=== PATIENT | male | born 1940 | race Caucasian/White ===

== ENCOUNTER 2018-02-15 12:59 | Outpatient (CLI) | payer OTHER | END 2018-02-15 13:06 | disposition home or self-care (01) | LOC: NUCLEAR 12:59 | DX: M81.0 Age-related osteoporosis without current pathological fracture (principal) ==

== ENCOUNTER 2018-03-29 08:11 | Outpatient (CLI) | payer OTHER | END 2018-03-29 17:00 | disposition home or self-care (01) | LOC: RAD 08:11 | DX: M19.049 Primary osteoarthritis, unspecified hand (principal) ==

== ENCOUNTER → 2018-04-14 | Outpatient (CLI) | payer OTHER | END | disposition home or self-care (01) | LOC: NUCLEAR 10:57 | DX: G45.8 Other transient cerebral ischemic attacks and related syndromes (principal); Z86.73 Personal history of transient ischemic attack (TIA), and cerebral infarction without residual deficits ==

== ENCOUNTER 2019-04-12 11:51 | Outpatient (CLI) | payer OTHER | END 2019-04-12 12:54 | disposition home or self-care (01) | LOC: MRI 11:51 | DX: M54.5 Low back pain (principal); M54.6 Pain in thoracic spine | CPT/HCPCS: 72148 ==

== ENCOUNTER → 2019-11-17 11:41 | Outpatient (CLI) | payer OTHER | END | disposition home or self-care (01) | LOC: LAB 11:41 | DX: E11.65 Type 2 diabetes mellitus with hyperglycemia (principal); E78.2 Mixed hyperlipidemia; E03.8 Other specified hypothyroidism; E11.21 Type 2 diabetes mellitus with diabetic nephropathy; Z12.11 Encounter for screening for malignant neoplasm of colon ==

== ENCOUNTER 2020-03-13 04:43 | Day surgery (SDC) | payer OTHER ==
[~2020-03-13 04:43] MED LIST: CARDURA XL4 MG PO; FOSAMAX70 MG PO; HORIZANT300 MG; HORIZANT300 MG PO; SIMVASTATIN5 MG PO; SINGULAIR10 MG PO; THYROID PO; ZETIA10 MG PO
== END 2020-03-13 15:36 | disposition home or self-care (01) ==
LOC: CIR.AMB 04:43 → ADM 09:30 → CIR.AMB 15:36
PROVIDERS: ATTEND Specialist
DX: K40.90 Unilateral inguinal hernia, without obstruction or gangrene, not specified as recurrent (principal)

== ENCOUNTER → 2020-12-08 | Outpatient (CLI) | payer OTHER | END | disposition home or self-care (01) | LOC: RAD 12:35 | PROVIDERS: ATTEND Physical Medicine & Rehabilitation | DX: M54.2 Cervicalgia (principal) ==

== ENCOUNTER 2021-05-27 14:39 | Outpatient (CLI) | payer OTHER | END 2021-05-27 14:49 | disposition home or self-care (01) | LOC: RAD 14:39 | PROVIDERS: ATTEND Physical Medicine & Rehabilitation | DX: M19.041 Primary osteoarthritis, right hand (principal); M19.042 Primary osteoarthritis, left hand ==

== ENCOUNTER 2021-06-09 08:00 | Outpatient (CLI) | payer OTHER | END 2021-06-09 08:30 | disposition home or self-care (01) | LOC: PPH VACUNA 08:00 | PROVIDERS: ATTEND Emergency Medicine Pediatric Emergency Medicine | DX: Z23 Encounter for immunization (principal) ==

== ENCOUNTER 2021-07-06 12:06 | Outpatient (CLI) | payer OTHER | END 2021-07-06 12:32 | disposition home or self-care (01) | LOC: RAD 12:06 | PROVIDERS: ATTEND Physical Medicine & Rehabilitation Pain Medicine | DX: M53.88 Other specified dorsopathies, sacral and sacrococcygeal region (principal); M54.59 Other low back pain ==

== ENCOUNTER 2021-09-01 10:27 | Outpatient (CLI) | payer OTHER | END 2021-09-01 10:40 | disposition home or self-care (01) | LOC: MRI 10:27 | PROVIDERS: ATTEND Physical Medicine & Rehabilitation Pain Medicine | DX: M48.07 Spinal stenosis, lumbosacral region (principal); M54.17 Radiculopathy, lumbosacral region | CPT/HCPCS: 72148 ==

== ENCOUNTER 2021-09-16 08:11 | Outpatient (CLI) | payer OTHER | END 2021-09-16 14:42 | disposition home or self-care (01) | LOC: LAB 08:11 | PROVIDERS: ATTEND Internal Medicine Hematology & Oncology | DX: E78.2 Mixed hyperlipidemia (principal); E03.8 Other specified hypothyroidism; D64.89 Other specified anemias; D68.61 Antiphospholipid syndrome; D51.0 Vitamin B12 deficiency anemia due to intrinsic factor deficiency; D51.1 Vitamin B12 deficiency anemia due to selective vitamin B12 malabsorption with proteinuria; E72.12 Methylenetetrahydrofolate reductase deficiency; E06.3 Autoimmune thyroiditis; H34.8110 Central retinal vein occlusion, right eye, with macular edema; I10 Essential (primary) hypertension; N40.1 Benign prostatic hyperplasia with lower urinary tract symptoms; J45.998 Other asthma; I73.9 Peripheral vascular disease, unspecified ==

== ENCOUNTER 2022-03-25 08:24 | Outpatient (CLI) | payer OTHER | END 2022-03-25 08:42 | disposition home or self-care (01) | LOC: LAB 08:24 | PROVIDERS: ATTEND Internal Medicine Hematology & Oncology | DX: E03.9 Hypothyroidism, unspecified (principal); E78.2 Mixed hyperlipidemia; D50.8 Other iron deficiency anemias; I10 Essential (primary) hypertension; R74.02 Elevation of levels of lactic acid dehydrogenase [LDH]; K76.89 Other specified diseases of liver; D51.8 Other vitamin B12 deficiency anemias; E55.9 Vitamin D deficiency, unspecified; E03.8 Other specified hypothyroidism; D68.59 Other primary thrombophilia; R97.0 Elevated carcinoembryonic antigen [CEA]; R97.8 Other abnormal tumor markers; R97.20 Elevated prostate specific antigen [PSA]; E72.12 Methylenetetrahydrofolate reductase deficiency; E72.11 Homocystinuria; E06.3 Autoimmune thyroiditis; H34.8110 Central retinal vein occlusion, right eye, with macular edema; N40.1 Benign prostatic hyperplasia with lower urinary tract symptoms; J45.998 Other asthma; I70.213 Atherosclerosis of native arteries of extremities with intermittent claudication, bilateral legs ==

== ENCOUNTER 2022-03-29 10:20 | Outpatient (CLI) | payer OTHER | END 2022-03-29 10:22 | disposition home or self-care (01) | LOC: NUCLEAR 10:20 | PROVIDERS: ATTEND Specialist | DX: M81.0 Age-related osteoporosis without current pathological fracture (principal); Z88.0 Allergy status to penicillin ==

== ENCOUNTER → 2022-06-04 07:14 | Outpatient (CLI) | payer OTHER | END | disposition home or self-care (01) | LOC: NUCLEAR 07:14 | PROVIDERS: ATTEND Internal Medicine Cardiovascular Disease | DX: I20.9 Angina pectoris, unspecified (principal); Z88.0 Allergy status to penicillin | CPT/HCPCS: 78452; 93017; A9500; J0153 ==

== ENCOUNTER 2022-06-11 08:50 | Outpatient (CLI) | payer OTHER | END 2022-06-11 15:54 | disposition home or self-care (01) | LOC: SONOGRAMA 08:50 | PROVIDERS: ATTEND Internal Medicine Cardiovascular Disease | DX: R97.20 Elevated prostate specific antigen [PSA] (principal) ==

== ENCOUNTER 2022-06-14 08:47 | Outpatient (CLI) | payer OTHER | END 2022-06-14 16:20 | disposition home or self-care (01) | LOC: TOM 08:47 | PROVIDERS: ATTEND Radiology Diagnostic Radiology | DX: I82.429 Acute embolism and thrombosis of unspecified iliac vein (principal) ==

== ENCOUNTER 2023-09-02 11:43 | Outpatient (CLI) | payer OTHER | END 2023-09-02 11:44 | disposition home or self-care (01) | LOC: NUCLEAR 11:43 | PROVIDERS: ATTEND Internal Medicine Cardiovascular Disease | DX: I50.9 Heart failure, unspecified (principal) | CPT/HCPCS: 78472; A9560 ==

== ENCOUNTER 2023-09-21 07:31 | Outpatient (CLI) | payer OTHER ==
[2023-09-21 08:39] LABS: HEMATOCRIT 39.9 % (39.0-48.0); HEMOGLOBIN 13.7 g/dL (13-16.00); MEAN CELL VOLUME 90.1 fL (80.0-100.00); MEAN CORPUSCULAR HEMOGLOBIN 30.9 pg (27.00-32.0); MEAN CORPUSCULAR HGB CONC 34.3 g/dl (32.0-36.0); PLATELET COUNT 263 K/uL (150-450); RED BLOOD COUNT 4.42 M/uL (4.00-6.00); RED CELL DISTRIBUTION WIDTH 14.8 % (11.5-14.5)
[2023-09-21 08:47] LABS: PH,URINE 5.5 (5.0-8.0); URINE APPEARANCE Clear; URINE BILIRRUBIN Negative (NEGATIVE); URINE BLOOD Negative; URINE COLOR Yellow; URINE GLUCOSE Negative (NEGATIVE); URINE LEUKOCYTE Negative; URINE NITRATE Negative; URINE PROTEIN Negative (NEGATIVE); URINE UROBILINOGEN 0.2 E.U./dl
[2023-09-21 08:59] LABS: URINE BACTERIA 1.2 uL (0.0-1933); URINE EPITHELIAL CELLS 0.7 uL (0.0-38.8); URINE RBC 0.8 uL (0.0-20.8); URINE WBC 0.1 uL (0.0-23.2)
[2023-09-21 09:32] LABS: ALBUMIN 3.7 gm/dL (3.4-5.0); ALKALINE PHOSPHATASE 64 U/L (50-136); ALT/SGPT 38 U/L (12-78); ANION GAP 8 (10.0-20.0); AST/SGOT 16 U/L (15-37); BILIRUBIN TOTAL 0.59 mg/dL (0.3-1.2); BLOOD UREA NITROGEN 19 mg/dL (7-18); BUN CREA RATIO 17 (7.0-25.0); CALCIUM 9.7 mg/dL (8.5-10.1); CARBON DIOXIDE 27 mEq/L (21-32); CHLORIDE 107 mmol/L (98-107); CHOL HDL RATIO 2.6 (0-5.0); CHOLESTEROL 187 mg/dL (0-200); CREATININE SERUM 1.12 mg/dL (0.70-1.30); FREE TRIODOTIRONINE 2.22 pg/ml (2.18-3.98); GFR 62.92; GLOBULINA 3.2 G/DL (2.4-3.5); GLUCOSE FASTING 120 mg/dL (65-100); HDL 71 mg/dl (40-60); LDH 115 U/L (87-241); LDL 104 mg/dl (0-130); OSMOLALITY SERUM 279 MOSM/KG (275-295); POTASSIUM 4.02 mEq/L (3.5-5.1); SODIUM 138 mmol/L (136-145); TOTAL PROTEIN 6.9 gm/dL (6.4-8.2); TRIGLYCERIDES 62 mg/dL (0-150); VLDL 12 (0-39)
[2023-09-21 09:40] LABS: C-REACTIVE PROTEIN < 0.29 MG/DL (0.00-0.29)
[2023-09-21 10:53] LABS: FOLIC ACID > 20.00 ng/ml (4.78-20); VITAMIN D3 25 HYDROXY 45.85 ng/ml (30-120)
[2023-09-21 11:35] LABS: PLATELET ESTIMATE NORMAL (NORMAL)
[2023-09-21 11:52] LABS: MANUAL PLATELET COUNT 334
== END 2023-09-21 07:32 | disposition home or self-care (01) ==
LOC: LAB 07:31
PROVIDERS: ATTEND Internal Medicine Hematology & Oncology
DX: D51.0 Vitamin B12 deficiency anemia due to intrinsic factor deficiency (principal); D51.1 Vitamin B12 deficiency anemia due to selective vitamin B12 malabsorption with proteinuria; E72.12 Methylenetetrahydrofolate reductase deficiency; E72.11 Homocystinuria; E06.3 Autoimmune thyroiditis; H34.8110 Central retinal vein occlusion, right eye, with macular edema; I10 Essential (primary) hypertension; N40.1 Benign prostatic hyperplasia with lower urinary tract symptoms; E03.8 Other specified hypothyroidism; E78.2 Mixed hyperlipidemia; I70.213 Atherosclerosis of native arteries of extremities with intermittent claudication, bilateral legs; E55.9 Vitamin D deficiency, unspecified; Z13.220 Encounter for screening for lipoid disorders; E11.69 Type 2 diabetes mellitus with other specified complication; E11.21 Type 2 diabetes mellitus with diabetic nephropathy; N39.9 Disorder of urinary system, unspecified; M00.08 Staphylococcal arthritis, vertebrae; D64.89 Other specified anemias; R19.5 Other fecal abnormalities; Z88.0 Allergy status to penicillin

== ENCOUNTER → 2023-09-22 11:38 | Outpatient (CLI) | payer OTHER ==
[2023-09-22 12:44] LABS: ob POSITIVE (NEGATIVE)
== END | disposition home or self-care (01) ==
LOC: LAB 11:38
PROVIDERS: ATTEND Specialist
DX: Z13.220 Encounter for screening for lipoid disorders (principal); E11.69 Type 2 diabetes mellitus with other specified complication; E11.21 Type 2 diabetes mellitus with diabetic nephropathy; E03.8 Other specified hypothyroidism; N39.9 Disorder of urinary system, unspecified; M00.08 Staphylococcal arthritis, vertebrae; D64.89 Other specified anemias; R19.5 Other fecal abnormalities; Z88.0 Allergy status to penicillin

== ENCOUNTER 2023-10-07 07:06 | Outpatient (CLI) | payer OTHER | END 2023-10-07 07:08 | disposition home or self-care (01) | LOC: NUCLEAR 07:06 | PROVIDERS: ATTEND Internal Medicine | DX: I25.10 Atherosclerotic heart disease of native coronary artery without angina pectoris (principal) | CPT/HCPCS: 78452; 93017; A9500 ==

== ENCOUNTER 2023-11-16 07:18 | Outpatient (CLI) | payer OTHER | END 2023-11-25 15:32 | disposition home or self-care (01) | LOC: RAD 07:18 | PROVIDERS: ATTEND Otolaryngology | DX: R10.13 Epigastric pain (principal) ==

== ENCOUNTER → 2024-05-23 | Outpatient (CLI) | payer OTHER | END | disposition home or self-care (01) | LOC: RAD 11:06 | PROVIDERS: ATTEND Physical Medicine & Rehabilitation | DX: M25.551 Pain in right hip (principal) ==

== ENCOUNTER → 2024-06-13 07:00 | Outpatient (CLI) | payer OTHER ==
[2024-06-13 08:33] LABS: HEMATOCRIT 33.8 % (39.0-48.0); HEMOGLOBIN 11.7 g/dL (13-16.00); MEAN CELL VOLUME 89.9 fL (80.0-100.00); MEAN CORPUSCULAR HEMOGLOBIN 31.2 pg (27.00-32.0); MEAN CORPUSCULAR HGB CONC 34.7 g/dl (32.0-36.0); PLATELET COUNT 376 K/uL (150-450); RED BLOOD COUNT 3.76 M/uL (4.00-6.00); RED CELL DISTRIBUTION WIDTH 17.3 % (11.5-14.5)
[2024-06-13 09:41] LABS: ALBUMIN 3.2 gm/dL (3.4-5.0); BILIRUBIN TOTAL 3.68 mg/dL (0.3-1.2); BILIRUBIN,CONJUGATED 2.81 mg/dL (0.0-0.2); BILIRUBIN,UNCONJUGATED 0.87 mg/dL (0.0-0.6); TOTAL PROTEIN 6.8 gm/dL (6.4-8.2)
[2024-06-14 07:11] LABS: hav igm Negative (Negative); hcv Non Reactive (Non Reactive); hep b c Negative (Negative); hep b s ag Negative (Negative)
[2024-06-14 09:07] LABS: HAPTOGLOBIN 145 mg/dL (38-329)
== END | disposition home or self-care (01) ==
LOC: LAB 07:00
PROVIDERS: ATTEND Specialist
DX: D64.9 Anemia, unspecified (principal); K75.81 Nonalcoholic steatohepatitis (NASH); B19.10 Unspecified viral hepatitis B without hepatic coma; D58.9 Hereditary hemolytic anemia, unspecified; B15.9 Hepatitis A without hepatic coma

== ENCOUNTER 2024-12-20 07:48 | Outpatient (CLI) | payer OTHER | END 2024-12-20 08:00 | disposition home or self-care (01) | LOC: SONOGRAMA 07:48 | PROVIDERS: ATTEND Specialist | DX: N20.0 Calculus of kidney (principal) ==

== ENCOUNTER 2025-01-04 09:14 | Outpatient (CLI) | payer OTHER | END 2025-01-04 09:30 | disposition home or self-care (01) | LOC: RAD 09:14 | PROVIDERS: ATTEND Internal Medicine Hematology & Oncology | DX: D68.61 Antiphospholipid syndrome (principal); D51.0 Vitamin B12 deficiency anemia due to intrinsic factor deficiency; D51.1 Vitamin B12 deficiency anemia due to selective vitamin B12 malabsorption with proteinuria; E72.12 Methylenetetrahydrofolate reductase deficiency; E06.3 Autoimmune thyroiditis; H34.8110 Central retinal vein occlusion, right eye, with macular edema; I10 Essential (primary) hypertension; N40.1 Benign prostatic hyperplasia with lower urinary tract symptoms; E03.8 Other specified hypothyroidism; J45.998 Other asthma; E78.2 Mixed hyperlipidemia; I73.9 Peripheral vascular disease, unspecified; E55.9 Vitamin D deficiency, unspecified; K71.6 Toxic liver disease with hepatitis, not elsewhere classified ==

== ENCOUNTER 2025-01-04 10:57 | Outpatient (CLI) | payer OTHER ==
[2025-01-04 13:18] LABS: URIC ACID 5.5 mg/dL (3.5-8.5)
[2025-01-04 13:26] LABS: C-REACTIVE PROTEIN < 0.29 MG/DL (0.00-0.29)
== END 2025-01-04 11:03 | disposition home or self-care (01) ==
LOC: LAB 10:57
PROVIDERS: ATTEND Internal Medicine Hematology & Oncology
DX: E79.0 Hyperuricemia without signs of inflammatory arthritis and tophaceous disease (principal); D68.61 Antiphospholipid syndrome; D51.0 Vitamin B12 deficiency anemia due to intrinsic factor deficiency; D51.1 Vitamin B12 deficiency anemia due to selective vitamin B12 malabsorption with proteinuria; E72.12 Methylenetetrahydrofolate reductase deficiency; E72.11 Homocystinuria; E06.3 Autoimmune thyroiditis; H34.8110 Central retinal vein occlusion, right eye, with macular edema; I10 Essential (primary) hypertension; N40.1 Benign prostatic hyperplasia with lower urinary tract symptoms; E03.8 Other specified hypothyroidism; J45.998 Other asthma; E78.2 Mixed hyperlipidemia; I73.9 Peripheral vascular disease, unspecified; I70.213 Atherosclerosis of native arteries of extremities with intermittent claudication, bilateral legs; E55.9 Vitamin D deficiency, unspecified; K71.6 Toxic liver disease with hepatitis, not elsewhere classified

== ENCOUNTER 2025-02-07 10:46 | Outpatient (CLI) | payer OTHER | END 2025-02-11 11:03 | disposition home or self-care (01) | LOC: MRI 10:46 | PROVIDERS: ATTEND Orthopaedic Surgery | DX: M79.672 Pain in left foot (principal) | CPT/HCPCS: 73718 ==

== ENCOUNTER 2025-03-07 09:58 | Outpatient (CLI) | payer OTHER | END 2025-03-07 09:59 | disposition home or self-care (01) | LOC: NUCLEAR 09:58 | PROVIDERS: ATTEND Orthopaedic Surgery | DX: M81.0 Age-related osteoporosis without current pathological fracture (principal) ==

== ENCOUNTER 2025-03-11 07:35 | Outpatient (CLI) | payer OTHER ==
[2025-03-11 08:56] LABS: BASO % 0.4 % (0.1-1.2); EOS # 0.28 (0.04-0.54); EOS % 4.2 % (0.7-7.0); HEMATOCRIT 41.7 % (40.1-51.0); HEMOGLOBIN 13.9 g/dL (13.7-17.5); LYMPH # 1.99 (1.18-3.74); LYMPH % 29.5 % (19.3-53.1); MEAN CORPUSCULAR HEMOGLOBIN 29.1 pg (25.6-32.2); MONO % 7.4 % (4.7-12.5); NEUT # 3.91 (1.56-6.13); NEUT % 58.1 % (34.0-71.1); PLATELET COUNT 262 K/uL (163-369); RED BLOOD COUNT 4.77 M/uL (4.63-6.08); RED CELL DISTRIBUTION WIDTH 14.4 % (11.6-14.4)
[2025-03-11 08:59] LABS: URINE APPEARANCE Clear; URINE BILIRRUBIN Negative (NEGATIVE); URINE BLOOD Negative; URINE COLOR Yellow; URINE GLUCOSE Negative (NEGATIVE); URINE KETONE Negative (NEGATIVE); URINE LEUKOCYTE Negative; URINE NITRATE Negative; URINE PROTEIN Negative (NEGATIVE); URINE UROBILINOGEN 0.2 E.U./dl
[2025-03-11 09:05] LABS: URINE BACTERIA 1.2 uL (0.0-1933); URINE EPITHELIAL CELLS 0.3 uL (0.0-38.8); URINE RBC 1.4 uL (0.0-20.8); URINE WBC 0.4 uL (0.0-23.2)
[2025-03-11 10:28] LABS: ALBUMIN 3.8 gm/dL (3.4-5.0); BILIRUBIN TOTAL 0.78 mg/dL (0.3-1.2); CALCIUM 9.6 mg/dL (8.5-10.1); CREATININE SERUM 1.14 mg/dL (0.70-1.30); FREE TRIODOTIRONINE 2.34 pg/ml (2.18-3.98); GFR 61.5; MAGNESIUM 2.3 mg/dL (1.8-2.4); POTASSIUM 3.9 mEq/L (3.5-5.1); T4 FREE 0.87 NG/ML (0.76-1.46); TOTAL PROTEIN 6.8 gm/dL (6.4-8.2); TSH 3.95 uIU/mL (0.358-3.74)
[2025-03-11 12:29] LABS: URINE PROT QUANT 24HR < 5.00 MG/DL
== END 2025-03-11 07:39 | disposition home or self-care (01) ==
LOC: LAB 07:35
PROVIDERS: ATTEND Specialist
DX: E03.9 Hypothyroidism, unspecified (principal); E11.21 Type 2 diabetes mellitus with diabetic nephropathy; N39.9 Disorder of urinary system, unspecified; D64.9 Anemia, unspecified; E11.65 Type 2 diabetes mellitus with hyperglycemia; E55.9 Vitamin D deficiency, unspecified; M85.9 Disorder of bone density and structure, unspecified; E56.1 Deficiency of vitamin K

== ENCOUNTER 2025-06-24 07:30 | Outpatient (CLI) | payer OTHER ==
[2025-06-24 08:35] LABS: BASO % 0.6 % (0.1-1.2); EOS # 0.30 (0.04-0.54); EOS % 4.3 % (0.7-7.0); LYMPH # 1.99 (1.18-3.74); LYMPH % 28.5 % (19.3-53.1); MEAN PLATELET VOLUME 9.80 fl (9.4-12.4); MONO # 0.58 (0.24-0.82); MONO % 8.3 % (4.7-12.5); NEUT # 4.07 (1.56-6.13); NEUT % 58.2 % (34.0-71.1); RED CELL DISTRIBUTION WIDTH 14.0 % (11.6-14.4)
[2025-06-24 09:51] LABS: ALT/SGPT 37 U/L (12-78); AST/SGOT 19 U/L (15-37); BILIRUBIN TOTAL 0.87 mg/dL (0.3-1.2); BUN CREA RATIO 15 (7.0-25.0); CHOL HDL RATIO 2.8 (0-5.0); CREATININE SERUM 1.21 mg/dL (0.70-1.30); FE 68.0 ug/dl (65-175); FREE TRIODOTIRONINE 2.38 pg/ml (2.18-3.98); GFR 57.41; GLOBULINA 2.7 G/DL (2.4-3.5); GLUCOSE FASTING 101 mg/dL (65-100); HDL 63 mg/dl (40-60); LDH 119 U/L (87-241); LDL 99 mg/dl (0-130); OSMOLALITY SERUM 289 MOSM/KG (275-295); PROSTATIC SPECIFIC ANTIGEN 1.590 NG/ML (0.010-4.00); T4 FREE 0.94 NG/ML (0.76-1.46); TSH 4.470 uIU/mL (0.358-3.74); VLDL 15 (0-39)
[2025-06-24 12:51] LABS: FOLIC ACID > 20.00 ng/ml (4.78-20); VITAMIN D3 25 HYDROXY 33.13 ng/ml (30-120)
== END 2025-06-24 07:38 | disposition home or self-care (01) ==
LOC: LAB 07:30
PROVIDERS: ATTEND Internal Medicine Hematology & Oncology
DX: D51.0 Vitamin B12 deficiency anemia due to intrinsic factor deficiency (principal); D51.1 Vitamin B12 deficiency anemia due to selective vitamin B12 malabsorption with proteinuria; E06.3 Autoimmune thyroiditis; H34.8110 Central retinal vein occlusion, right eye, with macular edema; I10 Essential (primary) hypertension; N40.1 Benign prostatic hyperplasia with lower urinary tract symptoms; E03.8 Other specified hypothyroidism; J45.998 Other asthma; E78.2 Mixed hyperlipidemia; I70.213 Atherosclerosis of native arteries of extremities with intermittent claudication, bilateral legs; E55.9 Vitamin D deficiency, unspecified; K71.6 Toxic liver disease with hepatitis, not elsewhere classified; E03.9 Hypothyroidism, unspecified; D64.9 Anemia, unspecified; E11.65 Type 2 diabetes mellitus with hyperglycemia; D50.8 Other iron deficiency anemias; R79.9 Abnormal finding of blood chemistry, unspecified; R74.02 Elevation of levels of lactic acid dehydrogenase [LDH]; K76.89 Other specified diseases of liver; R97.0 Elevated carcinoembryonic antigen [CEA]; D68.61 Antiphospholipid syndrome